=== PATIENT | female | born 1945 | race Caucasian/White ===

== ENCOUNTER → 2016-07-12 | Outpatient (CLI) | payer MEDICARE, MEDICAID ==
[~2016-07-12] MED LIST: DICL25TA PO; EST.625T PO; EVOL140S SQ; HCT25T PO; MAGN200T PO; METF500T4 PO; NFLOSA25TA PO; OMG1KC PO; ROSU20TA PO; [UNRECOGNIZED DRUG - REMARK] PO; methylPREDNISolone 80 MG/ML (DEPO MEDROL) VIAL IM ONE
--- NOTE | 2016-07-13 11:30 | PAIN MANAGEMENT ---
Date of note: 07/12/2016 Procedure: Epidural steroid injection with fluoroscopic guidance Fluoroscopy exposure time: 15 seconds This is a 71-year-old patient under the care of Dr. Patel De La Cruz. The patient was referred to anesthesia for the purpose of an epidural steroid injection secondary to low back pain with radicular symptoms. she is not new to our services. She has received epidurals historically in the past by both myself and Brendon Mari. She comes in today complaining of pain predominantly on the right side following the L4-5 dermatome level. She is very tender over that site. She has radiating symptoms that go down the back of her leg, the side of her leg and the front of her leg. She thinks that the front of her leg may be in response to the way she has been walking and has some sort of compensatory changes causing that pain. we are focusing on the back of her leg and the side of her leg, therefore, based on those symptoms wee decided to proceed forward with an L4-5 epidural steroid injection. This was also what was ordered by Dr. Patel De La Cruz. The patient was placed in the left lateral decubitus position. The patient was taken to the operating room for the use of fluoroscopic guidance for needle tip placement. Orders for procedure verified. Patient denies any bleeding tendencies. After informed consent obtained, the patient was positioned for the procedure. The area was prepped and draped using aseptic technique. The skin and overlying tissues were localized using 3 mL of 1% Preservative-Free lidocaine using a 25-gauge 1.5-inch needle. A 20-gauge Tuohy needle was advanced, using "loss of resistance" technique, to the epidural space. No blood, cerebral spinal fluid, pain, or paresthesia noted on entry of the epidural space. A 1 mL solution of Depo-Medrol 80 mg was injected slowly without mass volume effect. The needle was then removed and the patient was turned to the sitting position where she remained for approximately 5 minutes. She was then able to stand and walk back to the ASC under her own leg strength. She gets back to ASC and complains of a sharp pain headache oshea. The patient states it is not new, she has been having this pain all day long. I do not feel it is related to the epidural as there was absolutely no fluid noted during the epidural placement. Vital signs are stable and she is released. She is not driving and has a ride for her. She is asked to follow up with me via my cellphone in approximately 3 days. The patient states she understands these discharge instructions and I will follow her from there.
== END ==
LOC: PMC 13:55
PROVIDERS: ATTEND Family Medicine
DX: M54.16 Radiculopathy, lumbar region (principal)
CPT/HCPCS: 62323; J1040

== ENCOUNTER → 2016-08-08 | Outpatient (CLI) | payer MEDICARE, MEDICAID ==
--- NOTE | 2016-08-08 13:09 | PAIN MANAGEMENT ---
Date of note: 08/08/2016 Procedure: Epidural steroid injection under fluoroscopy Total fluoroscopic exposure time: 28 seconds This is a 71-year-old patient of Dr. Patel De La Cruz. The patient presents with a longstanding history of chronic back pain. She has lumbar radicular symptoms in the right leg in the dermatome level of L4-5. Informed consent was achieved for an epidural steroid injection under fluoroscopy at L4-5. Orders for procedure verified. Patient denies any bleeding tendencies. After informed consent obtained, the patient was positioned for the lumbar epidural steroid injection. The area was prepped and draped using aseptic technique. The skin and overlying tissues were localized using 3 mL of 1% Preservative-Free lidocaine using a 25-gauge 1.5-inch needle. A 20-gauge Tuohy needle was advanced, using "loss of resistance" technique, to the epidural space. No blood, cerebral spinal fluid, pain, or paresthesia noted on entry of the epidural space. A 1 mL solution of Depo-Medrol 80 mg was injected slowly without mass volume effect. The patient was placed in supine position 15 minutes prior to being released with proper leg strength and vitals. Pre- and post procedure vital signs stable with no sensory or motor deficit noted. Instruction on followup contact and care provided to the patient.
== END ==
LOC: PMC 10:42
PROVIDERS: ATTEND Family Medicine
DX: M54.16 Radiculopathy, lumbar region (principal)
CPT/HCPCS: 62323; J1040

== ENCOUNTER → 2016-08-09 | Outpatient (CLI) | payer MEDICARE, MEDICAID ==
[~2016-08-09] MED LIST changes: -methylPREDNISolone 80 MG/ML (DEPO MEDROL) VIAL IM ONE
--- NOTE | 2016-08-09 11:35 | Diagnostic Imaging Report ---
EXAMINATION: DEXA study. INDICATION: Post menopausal, screening FINDINGS: Bone mineral density of the lumbar spine, L2-L4 is 1.140 g/cm2 with a T-score of -0.5. This is in the NORMAL range. Bone mineral density of the left femur is 0.796 g/cm2 with a T-score of -1.7. This is in the OSTEOPENIA range. Bone mineral density of the right femur is 0.755 g/cm2 with a T-score of -2.0. This is in the OSTEOPENIA range. Total mean density of the hips is 0.775 g/cm2 with a T-score of -1.9. IMPRESSION: This scan is considered OSTEOPENIC according to the World Health Organization guidelines. Dictated by: Dictated on workstation # [id number]
--- NOTE | 2016-08-10 10:13 | Diagnostic Imaging Report ---
EXAM: Bilateral Digital Screening Mammography, with computer aided detection system (CAD). DATE: August 09, 2016. COMPARISON: November 14, 2012. INDICATION: Breast cancer screening. FINDINGS: There are scattered fibroglandular densities. There are no suspicious findings in either breast. IMPRESSION: 1. No mammographic evidence of malignancy. Recommend annual screening mammography and clinical breast exam. ACR BI-RADS Category 2: Benign findings. Result letter will be mailed to the patient. Note: At least 10% of breast cancer is not imaged by mammography. Dictated by: Dictated on workstation # [id number]
== END ==
LOC: RAD 09:55
PROVIDERS: ATTEND Family Medicine
DX: Z12.31 Encounter for screening mammogram for malignant neoplasm of breast (principal); Z78.0 Asymptomatic menopausal state; M15.0 Primary generalized (osteo)arthritis
CPT/HCPCS: 77080; G0202